=== PATIENT | male | born 1930 | race Caucasian/White ===

== ENCOUNTER 2018-01-05 05:26 | Observation (INO) | payer OTHER, MEDICARE ==
[~2018-01-05] VITALS: Ht 180.3 cm; Wt 68.9 kg
[2018-01-05] MEDS ORDERED: SODIUM CHLORIDE FLUSH 10ML SYR IVF ONE (06:00)
[2018-01-05] MEDS ORDERED: NITROGLYCERIN SINGLE TAB 0.4 MG SL PRN (06:00)
[2018-01-05 06:02] LABS: BASOPHILS # (AUTO) 0.03 x10^3/uL (0-0.1); BASOPHILS % (AUTO) 1 % (0-1); EOSINOPHILS # (AUTO) 0.01 x10^3/uL (0-0.4); EOSINOPHILS % (AUTO) 0 % (1-7); LYMPHOCYTES # (AUTO) 0.58 x10^3/uL (1-3.4); LYMPHOCYTES % (AUTO) 9 % (22-44); MD NO; MEAN CORPUSCULAR HEMOGLOBIN 32.3 pg (27.5-34.5); MEAN CORPUSCULAR HGB CONC 32.9 g/dL (33.2-36.2); MEAN CORPUSCULAR VOLUME 98.1 fL (81-97); MEAN PLATELET VOLUME 9.1 fL (7.4-10.4); MONOCYTES # (AUTO) 0.25 x10^3/uL (0.2-0.8); MONOCYTES % (AUTO) 4 % (2-9); NEUTROPHILS # (AUTO) 5.97 x10^3/uL (1.8-6.8); NEUTROPHILS % (AUTO) 87 % (42-75); PLATELET COUNT 172 x10^3/uL (130-400); RED CELL DISTRIBUTION WIDTH 13.3 % (9.4-14.8)
[2018-01-05 06:10] LABS: INTERNATIONAL NORMALIZED RATIO 1.25 (0.93-1.1); PROTHROMBIN TIME 12.8 Seconds (9.6-11.5)
[2018-01-05 06:13] LABS: ALBUMIN 3.9 g/dL (3.4-5.0); ANION GAP 11 mmol/L (5-15); CALCIUM 8.9 mg/dL (8.5-10.1); CHLORIDE 107 mmol/L (98-107); CREATININE 0.88 mg/dL (0.7-1.3)
[2018-01-05 06:17] LABS: TROPONIN I < 0.015 ng/mL (0.000-0.045)
[2018-01-05] MEDS ORDERED: PLEASE ENTER ALLERGIES MC SCH (06:30)
[2018-01-05] MEDS ORDERED: NITROGLYCERIN SINGLE TAB 0.4 MG SL ONE (06:49)
[2018-01-05] MEDS ORDERED: SODIUM CHLORIDE FLUSH 10ML SYR IVF PRN (08:00)
[2018-01-05] MEDS ORDERED: morphine SULFATE 10 MG/ML, 1ML IV PRN (09:30)
[2018-01-05] MEDS ORDERED: ACETAMINOPHEN 325 MG TABLET PO PRN (09:30)
[2018-01-05] MEDS ORDERED: ENALAPRILAT 1.25 MG/ML, 2ML IVPush PRN (09:30)
[2018-01-05] MEDS ORDERED: METO-95 PO (09:57)
[2018-01-05] MEDS ORDERED: APIX5TAB PO (09:57)
[2018-01-05] MEDS ORDERED: AMLO10TA2 PO (09:57)
[2018-01-05] MEDS ORDERED: BENA40TA2 PO (09:57)
[2018-01-05] MEDS ORDERED: CARB1TAB22 PO (09:57)
[2018-01-05] MEDS ORDERED: PRAV40TA2 PO (09:57)
[2018-01-05 11:01] LABS: TROPONIN I < 0.015 ng/mL (0.000-0.045)
[2018-01-05 11:58] VITALS: BP 148/74
[2018-01-05] MEDS ORDERED: MAALOX/HYOSCYAMINE/LIDOCAINE 45 ML BTL PO ONE (12:30)
[2018-01-05] MEDS: APIXABAN 5 MG TABLET PO SCH ×2 (12:36→21:22)
[2018-01-05] MEDS: SODIUM CHLORIDE 0.9% 1,000 ML IV SCH (12:36)
[2018-01-05] MEDS: CARBIDOPA/LEVODOPA 25 MG/100 MG TABLET PO SCH ×4 (12:36→21:22)
[2018-01-05] MEDS: AMLODIPINE 5 MG TABLET PO SCH (12:37)
[2018-01-05] MEDS: BENAZEPRIL 20 MG TABLET PO SCH (12:37)
[2018-01-05 15:02] VITALS: BP 138/72
[2018-01-05 15:43] LABS: TROPONIN I < 0.015 ng/mL (0.000-0.045)
[2018-01-05 20:19] VITALS: BP 126/72
[2018-01-05] MEDS ORDERED: APIXABAN 5 MG TABLET PO SCH (21:00)
[2018-01-05] MEDS ORDERED: PRAVASTATIN 40 MG TABLET PO SCH (21:00)
[2018-01-05] MEDS: SODIUM CHLORIDE FLUSH 10ML SYR IVF SCH (21:24)
[2018-01-06 00:58] VITALS: BP 117/58
[2018-01-06] MEDS: SODIUM CHLORIDE 0.9% 1,000 ML IV SCH ×2 (02:53→18:00)
[2018-01-06 04:45] LABS: BASOPHILS # (AUTO) 0.03 x10^3/uL (0-0.1); BASOPHILS % (AUTO) 0 % (0-1); EOSINOPHILS % (AUTO) 0 % (1-7); LYMPHOCYTES # (AUTO) 0.66 x10^3/uL (1-3.4); LYMPHOCYTES % (AUTO) 6 % (22-44); MD NO; MEAN CORPUSCULAR HEMOGLOBIN 32.1 pg (27.5-34.5); MEAN CORPUSCULAR VOLUME 97.1 fL (81-97); MEAN PLATELET VOLUME 9.2 fL (7.4-10.4); MONOCYTES # (AUTO) 0.78 x10^3/uL (0.2-0.8); MONOCYTES % (AUTO) 7 % (2-9); NEUTROPHILS # (AUTO) 9.98 x10^3/uL (1.8-6.8); NEUTROPHILS % (AUTO) 87 % (42-75); PLATELET COUNT 147 x10^3/uL (130-400); RED BLOOD COUNT 3.82 x10^6/uL (4.38-5.82); RED CELL DISTRIBUTION WIDTH 13.6 % (9.4-14.8)
[2018-01-06 04:55] LABS: ANION GAP 9 mmol/L (5-15); CALCIUM 8.2 mg/dL (8.5-10.1); CHLORIDE 109 mmol/L (98-107)
[2018-01-06 04:58] LABS: CHOL/HDL RATIO 1.6; CHOLESTEROL, TOTAL 83 mg/dL (140-239); CREATININE 0.59 mg/dL (0.7-1.3); HDL CHOL % 64 % (26-37); HDL CHOLESTEROL (DIRECT) 53 mg/dL (40-60); TRIGLYCERIDES 30 mg/dL (50-200); VLDL CHOLESTEROL 6 mg/dL (0-25)
[2018-01-06 04:59] LABS: LDL CHOLESTEROL,CALCULATED 24 mg/dL (54-169); LDL/HDL RATIO 0.5 (0.5-3.0)
[2018-01-06] MEDS: CARBIDOPA/LEVODOPA 25 MG/100 MG TABLET PO SCH ×4 (05:30→18:11)
[2018-01-06] MEDS ORDERED: METOPROLOL SUCCINATE 100 MG TAB.ER.24H PO SCH (06:00)
[2018-01-06] MEDS ORDERED: POTASSIUM CHLORIDE 20 MEQ TAB.ER.PRT PO ONE (06:30)
[2018-01-06 06:59] VITALS: BP 114/66
[2018-01-06 07:42] LABS: FOLATE LEVEL 15.4 ng/mL (3.1-17.5)
[2018-01-06] MEDS ORDERED: BENAZEPRIL 10 MG TABLET ONE (08:19)
[2018-01-06] MEDS: AMLODIPINE 5 MG TABLET PO SCH (08:23)
[2018-01-06] MEDS: APIXABAN 5 MG TABLET PO SCH (08:24)
[2018-01-06] MEDS: SODIUM CHLORIDE FLUSH 10ML SYR IVF SCH (08:27)
[2018-01-06] MEDS: BENAZEPRIL 20 MG TABLET PO SCH (08:30)
[2018-01-06] MEDS ORDERED: BENAZEPRIL 20 MG TABLET PO SCH (09:00)
[2018-01-06] MEDS ORDERED: NEUTRA PHOS K 250 MG TABLET PO SCH (09:00)
[2018-01-06] MEDS ORDERED: AMLODIPINE 5 MG TABLET PO SCH (09:00)
[2018-01-06] MEDS ORDERED: TEMPLATE NON-FORMULARY MED. (Amlodipine Besylate (Amlodipine Besylate**) 10 MG) PO SCH (09:00)
[2018-01-06] MEDS ORDERED: REGADENOSON 0.4 MG/5 ML SYRINGE ONE (11:15)
[2018-01-06 13:25] VITALS: BP 119/68
[2018-01-06] MEDS ORDERED: CYAN10005 PO (18:50)
[2018-01-06] MEDS ORDERED: FERR-51 PO (18:50)
[2018-01-07] MEDS ORDERED: FERROUS SULFATE 325 MG TABLET PO SCH (08:00)
[2018-01-07] MEDS ORDERED: CYANOCOBALAMIN 1,000 MCG TABLET PO SCH (09:00)
== END 2018-01-06 19:37 | disposition home or self-care (01) ==
LOC: ED 07:36 → EDIP 07:37 → INTOOBSV 07:37 → ED 08:03 → 5SO 09:19
PROVIDERS: ADMIT Internal Medicine Pulmonary Disease; ATTEND Internal Medicine Pulmonary Disease
DX: R07.89 Other chest pain (principal); G20 Parkinson's disease; E78.00 Pure hypercholesterolemia, unspecified; I10 Essential (primary) hypertension; I25.10 Atherosclerotic heart disease of native coronary artery without angina pectoris; I25.2 Old myocardial infarction; I48.91 Unspecified atrial fibrillation; J44.9 Chronic obstructive pulmonary disease, unspecified; J84.10 Pulmonary fibrosis, unspecified; D64.9 Anemia, unspecified; Z95.0 Presence of cardiac pacemaker; Z86.73 Personal history of transient ischemic attack (TIA), and cerebral infarction without residual deficits
CPT/HCPCS: 36415; 71045; 78452; 80048; 80061; 82040; 82607; 82728; 82746; 83540; 83550; 83690; 83735; 83880; 84100; 84443; 84484; 85025; 85610; 85730; 93005; 93017; 96360; 96361; 99285; A9502; C9898; G0378; J2785; J7030

== ENCOUNTER 2018-01-31 09:18 | Day surgery (SDC) | payer OTHER, MEDICARE ==
[~2018-01-31] VITALS: Ht 180.3 cm; Wt 70.5 kg
[~2018-01-31 09:18] MED LIST: AMLO10TA2 PO; APIX5TAB PO; BENA40TA2 PO; CARB1TAB22 PO; CYAN10005 PO; FERR-51 PO; METO-95 PO; PRAV40TA2 PO
[2018-01-31] MEDS ORDERED: SODIUM CHLORIDE 0.9% 1,000 ML IV SCH (09:31)
[2018-01-31] MEDS ORDERED: MIDAZOLAM 1 MG/ML, 5ML ONE (09:44)
[2018-01-31] MEDS ORDERED: CEFAZOLIN PMX 1GM/50ML 50 ML ONE (09:44)
[2018-01-31] MEDS ORDERED: LIDOCAINE 2%, 10ML ONE (09:44)
[2018-01-31] MEDS ORDERED: FENTANYL PF 100 MCG/2ML ONE (09:44)
[2018-01-31] MEDS ORDERED: CEFAZOLIN 1,000 MG ONE (09:44)
[2018-01-31 09:48] VITALS: BP 135/75
[2018-01-31] MEDS ORDERED: CARB1TAB2 PO (09:53)
[2018-01-31] MEDS ORDERED: CEFAZOLIN PMX 1GM/50ML 50 ML IVPB ONE (10:00)
[2018-01-31] MEDS ORDERED: PLEASE ENTER HEIGHT AND WEIGHT MC SCH (10:00)
[2018-01-31] MEDS ORDERED: ACETAMINOPHEN 325 MG TABLET PO PRN (11:00)
[2018-01-31] MEDS ORDERED: CEPH-368 PO (11:05)
[2018-01-31] MEDS ORDERED: CARBIDOPA/LEVODOPA 25 MG/100 MG TABLET PO SCH (14:00)
[2018-01-31] MEDS ORDERED: APIXABAN 5 MG TABLET PO SCH (21:00)
[2018-01-31] MEDS ORDERED: PRAVASTATIN 40 MG TABLET PO SCH (21:00)
[2018-01-31] MEDS ORDERED: SODIUM CHLORIDE FLUSH 10ML SYR IVF SCH (21:00)
[2018-02-01] MEDS ORDERED: METOPROLOL SUCCINATE 100 MG TAB.ER.24H PO SCH (06:00)
[2018-02-01] MEDS ORDERED: TEMPLATE NON-FORMULARY MED. (Amlodipine Besylate (Amlodipine Besylate**) 10 MG) PO SCH (09:00)
[2018-02-01] MEDS ORDERED: TEMPLATE NON-FORMULARY MED. (Benazepril Hcl** 40 MG) PO SCH (09:00)
== END 2018-01-31 13:05 ==
LOC: CACL 09:18
PROVIDERS: ATTEND Internal Medicine Cardiovascular Disease
DX: Z45.010 Encounter for checking and testing of cardiac pacemaker pulse generator [battery] (principal); E11.9 Type 2 diabetes mellitus without complications; I10 Essential (primary) hypertension; E78.5 Hyperlipidemia, unspecified; I44.1 Atrioventricular block, second degree; I48.2 Chronic atrial fibrillation; Z95.0 Presence of cardiac pacemaker
CPT/HCPCS: 33228; 99156; C1785; J0690; J2250; J3010; J3490